=== PATIENT | female | born 1930 | race Caucasian/White ===

== ENCOUNTER 2018-10-12 09:20 | Emergency (ER) | payer MEDICARE, BC ==
[~2018-10-12] VITALS: Ht 167.6 cm; Wt 52.0 kg
[2018-10-12 10:59] VITALS: BP 98/52
== END 2018-10-12 12:30 | disposition home or self-care (01) ==
LOC: ED 10:18
DX: I95.9 Hypotension, unspecified (principal); I48.91 Unspecified atrial fibrillation; I10 Essential (primary) hypertension; Z79.899 Other long term (current) drug therapy
CPT/HCPCS: 36415; 71045; 80048; 82040; 84484; 85025; 93005; 99284

== ENCOUNTER 2019-04-05 08:18 | Outpatient (CLI) | payer MEDICARE, BC ==
[~2019-04-05 08:18] MED LIST: ACET-709 PEG; CEPH-368 PO; DABI75CA3 PO; DIGO125T81 PO; FURO20TA3 PO; LISI5TAB7 PO; METO50TA82 PO
== END 2019-04-05 23:59 | disposition home or self-care (01) ==
LOC: WOUND 08:18
PROVIDERS: ATTEND Family Medicine
DX: I70.245 Atherosclerosis of native arteries of left leg with ulceration of other part of foot (principal); L89.890 Pressure ulcer of other site, unstageable; L97.521 Non-pressure chronic ulcer of other part of left foot limited to breakdown of skin; L97.511 Non-pressure chronic ulcer of other part of right foot limited to breakdown of skin; E55.9 Vitamin D deficiency, unspecified; E78.5 Hyperlipidemia, unspecified; M06.9 Rheumatoid arthritis, unspecified; M81.0 Age-related osteoporosis without current pathological fracture; I11.9 Hypertensive heart disease without heart failure; I48.91 Unspecified atrial fibrillation; F32.9 Major depressive disorder, single episode, unspecified; F41.9 Anxiety disorder, unspecified; Z95.0 Presence of cardiac pacemaker; Z87.891 Personal history of nicotine dependence; Z85.3 Personal history of malignant neoplasm of breast
CPT/HCPCS: 73630; G0463

== ENCOUNTER 2019-04-05 09:54 | Outpatient (CLI) | payer MEDICARE, BC | END 2019-04-05 23:59 | disposition home or self-care (01) | LOC: CFH 09:54 | PROVIDERS: ATTEND Family Medicine | DX: S91.301D Unspecified open wound, right foot, subsequent encounter (principal); S91.302D Unspecified open wound, left foot, subsequent encounter; M19.072 Primary osteoarthritis, left ankle and foot; M10.072 Idiopathic gout, left ankle and foot; M81.0 Age-related osteoporosis without current pathological fracture; M86.8X7 Other osteomyelitis, ankle and foot; X58.XXXD Exposure to other specified factors, subsequent encounter ==

== ENCOUNTER → 2019-04-18 | Outpatient (CLI) | payer MEDICARE, BC | END | disposition home or self-care (01) | LOC: CVU 06:49 | PROVIDERS: ATTEND Family Medicine | DX: S91.301D Unspecified open wound, right foot, subsequent encounter (principal); S91.302D Unspecified open wound, left foot, subsequent encounter; I82.811 Embolism and thrombosis of superficial veins of right lower extremity; I70.293 Other atherosclerosis of native arteries of extremities, bilateral legs; X58.XXXA Exposure to other specified factors, initial encounter | CPT/HCPCS: 93922; 93925; 93970 ==

== ENCOUNTER 2019-04-19 08:01 | Outpatient (CLI) | payer MEDICARE, BC | END 2019-04-19 23:59 | disposition home or self-care (01) | LOC: WOUND 08:01 | PROVIDERS: ATTEND Family Medicine | DX: I70.245 Atherosclerosis of native arteries of left leg with ulceration of other part of foot (principal); L89.890 Pressure ulcer of other site, unstageable; L97.522 Non-pressure chronic ulcer of other part of left foot with fat layer exposed; I70.235 Atherosclerosis of native arteries of right leg with ulceration of other part of foot; L97.511 Non-pressure chronic ulcer of other part of right foot limited to breakdown of skin; I11.0 Hypertensive heart disease with heart failure; I50.9 Heart failure, unspecified; I48.91 Unspecified atrial fibrillation; E78.5 Hyperlipidemia, unspecified; M81.0 Age-related osteoporosis without current pathological fracture; M10.072 Idiopathic gout, left ankle and foot; M19.071 Primary osteoarthritis, right ankle and foot; M86.8X7 Other osteomyelitis, ankle and foot; F41.9 Anxiety disorder, unspecified; F32.9 Major depressive disorder, single episode, unspecified; Z85.3 Personal history of malignant neoplasm of breast; Z87.891 Personal history of nicotine dependence; Z95.0 Presence of cardiac pacemaker; Z88.0 Allergy status to penicillin | CPT/HCPCS: 36415; 85025; 85651; 86140; G0463 ==

== ENCOUNTER → 2019-04-19 | Outpatient (CLI) | payer MEDICARE, BC ==
[2019-04-19 14:07] LABS: BASOPHILS # (AUTO) 0.03 x10^3/uL (0-0.1); BASOPHILS % (AUTO) 0 % (0-1); EOSINOPHILS % (AUTO) 3 % (1-7); LYMPHOCYTES # (AUTO) 1.19 x10^3/uL (1-3.4); LYMPHOCYTES % (AUTO) 15 % (22-44); MD NO; MEAN CORPUSCULAR HGB CONC 32.6 g/dL (32.4-35.8); MEAN CORPUSCULAR VOLUME 88.8 fL (80-100); MEAN PLATELET VOLUME 9.5 fL (7.4-10.4); MONOCYTES # (AUTO) 0.65 x10^3/uL (0.2-0.8); MONOCYTES % (AUTO) 8 % (2-9); NEUTROPHILS # (AUTO) 6.15 x10^3/uL (1.8-6.8); NEUTROPHILS % (AUTO) 75 % (42-75); PLATELET COUNT 264 x10^3/uL (130-400); RED BLOOD COUNT 4.01 x10^6/uL (3.82-5.3); RED CELL DISTRIBUTION WIDTH 16.2 % (9.6-15.2)
== END | disposition home or self-care (01) ==
LOC: CFH 08:50
PROVIDERS: ATTEND Family Medicine
DX: I70.235 Atherosclerosis of native arteries of right leg with ulceration of other part of foot (principal); I70.245 Atherosclerosis of native arteries of left leg with ulceration of other part of foot
CPT/HCPCS: 36415; 85025; 85651; 86140

== ENCOUNTER 2019-05-06 10:24 | Outpatient (CLI) | payer MEDICARE, BC | END 2019-05-06 23:59 | disposition home or self-care (01) | LOC: WOUND 10:24 | PROVIDERS: ATTEND Internal Medicine | DX: I70.245 Atherosclerosis of native arteries of left leg with ulceration of other part of foot (principal); L89.890 Pressure ulcer of other site, unstageable; L97.522 Non-pressure chronic ulcer of other part of left foot with fat layer exposed; I70.235 Atherosclerosis of native arteries of right leg with ulceration of other part of foot; L97.511 Non-pressure chronic ulcer of other part of right foot limited to breakdown of skin; I11.0 Hypertensive heart disease with heart failure; I50.9 Heart failure, unspecified; I48.91 Unspecified atrial fibrillation; E78.5 Hyperlipidemia, unspecified; M81.0 Age-related osteoporosis without current pathological fracture; M10.072 Idiopathic gout, left ankle and foot; M19.071 Primary osteoarthritis, right ankle and foot; M86.8X7 Other osteomyelitis, ankle and foot; F41.9 Anxiety disorder, unspecified; F32.9 Major depressive disorder, single episode, unspecified; Z85.3 Personal history of malignant neoplasm of breast; Z87.891 Personal history of nicotine dependence; Z95.0 Presence of cardiac pacemaker; Z88.0 Allergy status to penicillin | CPT/HCPCS: 11042; 99215 ==

== ENCOUNTER 2019-05-06 11:42 | Inpatient (IN) | payer MEDICARE, BC ==
[~2019-05-06] VITALS: Ht 167.6 cm; Wt 61.3 kg
[2019-05-06 12:38] LABS: BASOPHILS # (AUTO) 0.03 x10^3/uL (0-0.1); BASOPHILS % (AUTO) 0 % (0-1); EOSINOPHILS # (AUTO) 0.19 x10^3/uL (0-0.4); EOSINOPHILS % (AUTO) 2 % (1-7); LYMPHOCYTES # (AUTO) 1.43 x10^3/uL (1-3.4); LYMPHOCYTES % (AUTO) 16 % (22-44); MD NO; MEAN CORPUSCULAR HEMOGLOBIN 29.1 pg (27.0-34.8); MEAN CORPUSCULAR HGB CONC 32.7 g/dL (32.4-35.8); MEAN PLATELET VOLUME 8.4 fL (7.4-10.4); MONOCYTES # (AUTO) 0.69 x10^3/uL (0.2-0.8); MONOCYTES % (AUTO) 8 % (2-9); NEUTROPHILS # (AUTO) 6.51 x10^3/uL (1.8-6.8); NEUTROPHILS % (AUTO) 74 % (42-75); PLATELET COUNT 285 x10^3/uL (130-400); RED BLOOD COUNT 4.14 x10^6/uL (3.82-5.3); RED CELL DISTRIBUTION WIDTH 15.9 % (9.6-15.2)
[2019-05-06 12:47] LABS: ALBUMIN 3.7 g/dL (3.4-5.0); ANION GAP 5 mmol/L (5-15); CALCIUM 9.6 mg/dL (8.5-10.1); CHLORIDE 108 mmol/L (98-107)
[2019-05-06 12:59] LABS: ALANINE AMINOTRANSFERASE 17 U/L (12-78); ALKALINE PHOSPHATASE 78 U/L (45-117); BILIRUBIN,TOTAL 0.5 mg/dL (0.2-1.0); CREATININE 1.41 mg/dL (0.55-1.02); TOTAL PROTEIN 7.6 g/dL (6.4-8.2)
[2019-05-06 13:24] LABS: HCT (SEDRATE) 36.8 % (34.6-47.8)
--- NOTE | 2019-05-06 18:00 | NUR ---
PT IN BED, FAMILY AT BEDSIDE, NO SIGNS OF DISTRESS.
[2019-05-06] MEDS ORDERED: CEFTRIAXONE PMX 1GM/50ML 50 ML IVPB ONE (19:00)
--- NOTE | 2019-05-06 19:00 | NUR ---
REPORT GIVEN TO BONNY MELO
--- NOTE | 2019-05-06 19:22 | NUR ---
Report received from BONNY Krishnan. This RN to assume care. [facility].
[2019-05-06] MEDS ORDERED: CEFTRIAXONE PMX 1GM/50ML 50 ML ONE (19:25)
[2019-05-06] MEDS ORDERED: SODIUM CHLORIDE FLUSH 10ML SYR IVF PRN (20:00)
[2019-05-06] MEDS: SODIUM CHLORIDE 0.9% 1,000 ML IV SCH (20:10)
[2019-05-06] MEDS ORDERED: ACETAMINOPHEN 325 MG TABLET PO PRN (20:30)
[2019-05-06] MEDS ORDERED: BISACODYL 10 MG SUPP PR PRN (20:30)
[2019-05-06] MEDS ORDERED: HEPARIN 5,000 UNITS/ML, 1ML ONE (20:38)
[2019-05-06] MEDS ORDERED: LISINOPRIL 5 MG TABLET ONE (20:38)
[2019-05-06] MEDS ORDERED: METOPROLOL TARTRATE 25 MG TAB ONE (20:38)
[2019-05-06] MEDS: METOPROLOL TARTRATE 50 MG TAB PO SCH (21:00)
[2019-05-06] MEDS ORDERED: APAP/CODEINE 300/30MG TABLET PEG SCH (21:00)
[2019-05-06] MEDS ORDERED: APAP/CODEINE 300/30MG TABLET ONE (21:04)
[2019-05-06] MEDS: HEPARIN 5,000 UNITS/ML, 1ML SQ SCH (21:26)
[2019-05-06] MEDS: LISINOPRIL 5 MG TABLET PO SCH (21:27)
[2019-05-06 22:56] VITALS: BP 145/77
[2019-05-07 02:10] VITALS: BP 132/75
[2019-05-07] MEDS: APAP/CODEINE 300/30MG TABLET PO SCH ×4 (03:33→23:04)
[2019-05-07 05:10] LABS: ANION GAP 6 mmol/L (5-15); CALCIUM 8.9 mg/dL (8.5-10.1); CHLORIDE 110 mmol/L (98-107); CREATININE 1.23 mg/dL (0.55-1.02)
[2019-05-07 05:18] LABS: BASOPHILS # (AUTO) 0.03 x10^3/uL (0-0.1); BASOPHILS % (AUTO) 0 % (0-1); EOSINOPHILS # (AUTO) 0.24 x10^3/uL (0-0.4); EOSINOPHILS % (AUTO) 3 % (1-7); LYMPHOCYTES # (AUTO) 1.79 x10^3/uL (1-3.4); LYMPHOCYTES % (AUTO) 25 % (22-44); MD NO; MEAN CORPUSCULAR HEMOGLOBIN 28.9 pg (27.0-34.8); MEAN CORPUSCULAR HGB CONC 32.5 g/dL (32.4-35.8); MEAN PLATELET VOLUME 8.8 fL (7.4-10.4); MONOCYTES # (AUTO) 0.59 x10^3/uL (0.2-0.8); MONOCYTES % (AUTO) 8 % (2-9); NEUTROPHILS # (AUTO) 4.51 x10^3/uL (1.8-6.8); NEUTROPHILS % (AUTO) 63 % (42-75); PLATELET COUNT 223 x10^3/uL (130-400); RED BLOOD COUNT 3.66 x10^6/uL (3.82-5.3); RED CELL DISTRIBUTION WIDTH 15.8 % (9.6-15.2)
[2019-05-07] MEDS: HEPARIN 5,000 UNITS/ML, 1ML SQ SCH ×3 (05:42→23:04)
[2019-05-07 07:41] VITALS: BP 129/65
[2019-05-07] MEDS: SODIUM CHLORIDE 0.9% 1,000 ML IV SCH (09:20)
[2019-05-07] MEDS: DIGOXIN 0.125 MG TABLET PO SCH (09:21)
[2019-05-07] MEDS: LISINOPRIL 5 MG TABLET PO SCH ×2 (09:23→23:04)
[2019-05-07] MEDS: SENNA/DOCUSATE TABLET PO SCH (09:23)
[2019-05-07] MEDS: METOPROLOL TARTRATE 50 MG TAB PO SCH ×2 (09:23→23:04)
[2019-05-07 12:35] VITALS: BP 132/71
[2019-05-07 19:05] VITALS: BP 133/88
[2019-05-08 02:57] VITALS: BP 163/79
[2019-05-08] MEDS: APAP/CODEINE 300/30MG TABLET PO SCH ×4 (05:48→23:04)
[2019-05-08] MEDS: HEPARIN 5,000 UNITS/ML, 1ML SQ SCH ×3 (06:37→22:00)
[2019-05-08] MEDS: DIGOXIN 0.125 MG TABLET PO SCH (08:42)
[2019-05-08] MEDS: LISINOPRIL 5 MG TABLET PO SCH ×2 (08:42→21:24)
[2019-05-08] MEDS: METOPROLOL TARTRATE 50 MG TAB PO SCH ×2 (08:42→21:23)
[2019-05-08] MEDS: SENNA/DOCUSATE TABLET PO SCH (08:42)
[2019-05-08 09:07] VITALS: BP 112/65
[2019-05-08 13:52] VITALS: BP 90/59
[2019-05-08 18:46] VITALS: BP 115/93
[2019-05-09 00:52] VITALS: BP 134/72
[2019-05-09] MEDS: APAP/CODEINE 300/30MG TABLET PO SCH ×4 (05:00→23:46)
[2019-05-09] MEDS: HEPARIN 5,000 UNITS/ML, 1ML SQ SCH ×3 (05:39→22:00)
[2019-05-09] MEDS ORDERED: FLUMAZENIL 0.1 MG/1 ML, 5ML ONE (07:11)
[2019-05-09] MEDS ORDERED: FENTANYL PF 100 MCG/2ML ONE (07:11)
[2019-05-09] MEDS ORDERED: MIDAZOLAM 1 MG/ML, 5ML ONE (07:11)
[2019-05-09] MEDS ORDERED: NALOXONE 1 MG/ML, 2ML ONE (07:11)
[2019-05-09] MEDS ORDERED: HEPARIN 1,000 UNITS/ML, 10ML ONE (07:11)
[2019-05-09] MEDS ORDERED: PROTAMINE SULFATE 10 MG/ML, 25ML ONE (07:11)
[2019-05-09] MEDS ORDERED: LIDOCAINE 2%, 20ML ONE (07:13)
[2019-05-09 07:55] VITALS: BP 124/69
[2019-05-09] MEDS ORDERED: hydrALAzine 20 MG/ML, 1ML ONE (08:45)
[2019-05-09] MEDS: LISINOPRIL 5 MG TABLET PO SCH ×2 (09:21→21:26)
[2019-05-09] MEDS: METOPROLOL TARTRATE 50 MG TAB PO SCH ×2 (09:21→23:50)
[2019-05-09] MEDS: SENNA/DOCUSATE TABLET PO SCH (09:21)
[2019-05-09] MEDS: DIGOXIN 0.125 MG TABLET PO SCH (09:21)
[2019-05-09 13:37] VITALS: BP 127/73
[2019-05-09 18:42] VITALS: BP 104/60
[2019-05-09 23:47] VITALS: BP 130/67
[2019-05-10 01:10] VITALS: BP 136/71
[2019-05-10 04:21] LABS: BASOPHILS # (AUTO) 0.02 x10^3/uL (0-0.1); BASOPHILS % (AUTO) 0 % (0-1); EOSINOPHILS # (AUTO) 0.24 x10^3/uL (0-0.4); EOSINOPHILS % (AUTO) 4 % (1-7); LYMPHOCYTES # (AUTO) 1.22 x10^3/uL (1-3.4); LYMPHOCYTES % (AUTO) 19 % (22-44); MD NO; MEAN CORPUSCULAR HEMOGLOBIN 28.9 pg (27.0-34.8); MEAN CORPUSCULAR HGB CONC 32.6 g/dL (32.4-35.8); MEAN CORPUSCULAR VOLUME 88.5 fL (80-100); MEAN PLATELET VOLUME 8.2 fL (7.4-10.4); MONOCYTES # (AUTO) 0.61 x10^3/uL (0.2-0.8); MONOCYTES % (AUTO) 10 % (2-9); NEUTROPHILS # (AUTO) 4.33 x10^3/uL (1.8-6.8); NEUTROPHILS % (AUTO) 67 % (42-75); PLATELET COUNT 206 x10^3/uL (130-400); RED BLOOD COUNT 3.52 x10^6/uL (3.82-5.3); RED CELL DISTRIBUTION WIDTH 15.6 % (9.6-15.2)
[2019-05-10 04:33] LABS: ANION GAP 5 mmol/L (5-15); CALCIUM 8.9 mg/dL (8.5-10.1); CHLORIDE 110 mmol/L (98-107); CREATININE 1.13 mg/dL (0.55-1.02)
[2019-05-10] MEDS: APAP/CODEINE 300/30MG TABLET PO SCH ×3 (05:00→22:02)
[2019-05-10] MEDS: HEPARIN 5,000 UNITS/ML, 1ML SQ SCH (05:16)
[2019-05-10] MEDS ORDERED: PHENYLEPHRINE 10 MG/ML ONE (06:48)
[2019-05-10] MEDS ORDERED: FENTANYL PF 250 MCG/5ML ONE (06:50)
[2019-05-10] MEDS ORDERED: GABAPENTIN 300 MG CAPSULE PO ONE (07:00)
[2019-05-10] MEDS ORDERED: ACETAMINOPHEN 500 MG TABLET PO ONE (07:00)
[2019-05-10] MEDS ORDERED: HEPARIN 1,000 UNITS/ML, 10ML ONE (07:02)
[2019-05-10] MEDS ORDERED: BUPIVACAINE/PF-EPI 0.5% 1:200K ONE (07:02)
[2019-05-10] MEDS ORDERED: PROTAMINE SULFATE 10 MG/ML, 5ML ONE (07:03)
[2019-05-10] MEDS ORDERED: BACITRACIN 50,000 UNIT ONE (07:03)
[2019-05-10] MEDS ORDERED: THROMBIN 20,000 UNIT VIAL TP ONE (07:03)
[2019-05-10] MEDS ORDERED: OXYcodone 5 MG/5 ML ORAL.SOL UDC PO PRN (07:30)
[2019-05-10] MEDS ORDERED: MEPERIDINE/PF 25MG/ML,1ML IVPush PRN (07:30)
[2019-05-10] MEDS ORDERED: PROMETHAZINE 25 MG/ML, 1ML IV PRN (07:30)
[2019-05-10] MEDS ORDERED: LABETALOL 5MG/ML, 20ML IV PRN (07:30)
[2019-05-10] MEDS ORDERED: HYDROmorphone 2 MG/ML, 1ML IVPush PRN (07:30)
[2019-05-10] MEDS ORDERED: HALOPERIDOL 5 MG/ML IV PRN (07:30)
[2019-05-10] MEDS ORDERED: MORPHINE SULFATE 4 MG/ML, 1ML IVPush PRN (07:30)
[2019-05-10] MEDS ORDERED: FENTANYL PF 100 MCG/2ML IV PRN (07:30)
[2019-05-10] MEDS ORDERED: hydrALAzine 20 MG/ML, 1ML IV PRN (07:30)
[2019-05-10] MEDS ORDERED: ROCURONIUM 10MG/ML,5ML ONE (08:30)
[2019-05-10] MEDS ORDERED: GLYCOPYRROLATE 0.2MG/1ML, 5ML ONE (08:30)
[2019-05-10] MEDS ORDERED: ONDANSETRON 2MG/ML, 2ML ONE (08:30)
[2019-05-10] MEDS ORDERED: PROPOFOL 10 MG/ML, 20ML ONE (08:30)
[2019-05-10] MEDS ORDERED: DEXAMETHASONE 4 MG/ML, 1ML ONE (08:30)
[2019-05-10] MEDS ORDERED: CEFAZOLIN 1,000 MG ONE (08:30)
[2019-05-10] MEDS ORDERED: NEOSTIGMINE 1 MG/ML, 10ML ONE (08:30)
[2019-05-10] MEDS: DIGOXIN 0.125 MG TABLET PO SCH (09:00)
[2019-05-10] MEDS: METOPROLOL TARTRATE 50 MG TAB PO SCH ×2 (09:00→22:02)
[2019-05-10] MEDS: LISINOPRIL 5 MG TABLET PO SCH ×2 (09:00→22:02)
[2019-05-10] MEDS: SENNA/DOCUSATE TABLET PO SCH (09:00)
[2019-05-10] MEDS ORDERED: SUGAMMADEX 200 MG/2 ML IVPush ONE (09:18)
[2019-05-10] MEDS ORDERED: HEPARIN 25,000 UNITS/250ML PMX 250 ML IV PRN (10:00)
[2019-05-10] MEDS ORDERED: HEPARIN 5,000 UNITS/ML, 1ML IV PRN (10:00)
[2019-05-10] MEDS ORDERED: HEPARIN 5,000 UNITS/ML, 1ML IV ONE (10:00)
[2019-05-10] MEDS ORDERED: PROTAMINE SULFATE 10 MG/ML, 5ML IVPush ONE (12:00)
[2019-05-10 14:07] VITALS: BP 125/72
[2019-05-10] MEDS: ONDANSETRON ODT 4 MG PO PRN (18:39)
[2019-05-10 19:15] VITALS: BP 102/56
[2019-05-10] MEDS ORDERED: APIX2.5T PO (19:55)
[2019-05-10] MEDS ORDERED: morphine SULFATE 10 MG/ML, 1ML IV PRN (21:00)
[2019-05-10] MEDS: POTASSIUM CHLORIDE 20 MEQ in D5%-0.45% NACL 1,000 ML IV SCH (21:00)
[2019-05-10] MEDS: SULFAMETH./TRIMETHOPRIM DS 800MG/160MG TABLET PO SCH (22:02)
[2019-05-10] MEDS: CEFAZOLIN PMX 1GM/50ML 50 ML IVPB SCH (22:02)
[2019-05-11 01:02] VITALS: BP 120/62
[2019-05-11] MEDS: APAP/CODEINE 300/30MG TABLET PO SCH ×4 (04:00→21:35)
[2019-05-11 05:26] LABS: CHLORIDE 107 mmol/L (98-107)
[2019-05-11 05:30] LABS: CALCIUM 8.8 mg/dL (8.5-10.1); CREATININE 1.35 mg/dL (0.55-1.02)
[2019-05-11 05:36] LABS: BASOPHILS # (AUTO) 0.01 x10^3/uL (0-0.1); BASOPHILS % (AUTO) 0 % (0-1); EOSINOPHILS % (AUTO) 0 % (1-7); LYMPHOCYTES # (AUTO) 0.94 x10^3/uL (1-3.4); LYMPHOCYTES % (AUTO) 10 % (22-44); MD NO; MEAN CORPUSCULAR HEMOGLOBIN 29.2 pg (27.0-34.8); MEAN CORPUSCULAR HGB CONC 32.9 g/dL (32.4-35.8); MEAN CORPUSCULAR VOLUME 88.7 fL (80-100); MEAN PLATELET VOLUME 8.9 fL (7.4-10.4); MONOCYTES # (AUTO) 0.71 x10^3/uL (0.2-0.8); MONOCYTES % (AUTO) 8 % (2-9); NEUTROPHILS # (AUTO) 7.32 x10^3/uL (1.8-6.8); NEUTROPHILS % (AUTO) 82 % (42-75); PLATELET COUNT 201 x10^3/uL (130-400); RED BLOOD COUNT 3.15 x10^6/uL (3.82-5.3); RED CELL DISTRIBUTION WIDTH 15.7 % (9.6-15.2)
[2019-05-11 06:11] LABS: ANION GAP 7 mmol/L (5-15)
[2019-05-11] MEDS: CEFAZOLIN PMX 1GM/50ML 50 ML IVPB SCH (06:32)
[2019-05-11 07:59] VITALS: BP 124/65
[2019-05-11] MEDS: LISINOPRIL 5 MG TABLET PO SCH ×2 (08:54→21:35)
[2019-05-11] MEDS: DIGOXIN 0.125 MG TABLET PO SCH (08:54)
[2019-05-11] MEDS: SENNA/DOCUSATE TABLET PO SCH (08:54)
[2019-05-11] MEDS: SULFAMETH./TRIMETHOPRIM DS 800MG/160MG TABLET PO SCH ×2 (08:55→21:34)
[2019-05-11] MEDS: METOPROLOL TARTRATE 50 MG TAB PO SCH ×2 (08:55→21:34)
[2019-05-11 14:24] VITALS: BP_SYST 96; BP_DIAS 57; BP_DIAS 63
[2019-05-11] MEDS: POTASSIUM CHLORIDE 20 MEQ in D5%-0.45% NACL 1,000 ML IV SCH (14:55)
[2019-05-11] MEDS: HYDROcodone/APAP 5/325 TABLET PO PRN (15:22)
[2019-05-11 19:38] VITALS: BP 92/58
[2019-05-12 01:00] VITALS: BP 124/63
[2019-05-12] MEDS: POTASSIUM CHLORIDE 20 MEQ in D5%-0.45% NACL 1,000 ML IV SCH (03:58)
[2019-05-12] MEDS: APAP/CODEINE 300/30MG TABLET PO SCH ×4 (03:58→22:17)
[2019-05-12 05:23] LABS: BASOPHILS # (AUTO) 0.03 x10^3/uL (0-0.1); BASOPHILS % (AUTO) 1 % (0-1); EOSINOPHILS # (AUTO) 0.23 x10^3/uL (0-0.4); EOSINOPHILS % (AUTO) 4 % (1-7); LYMPHOCYTES # (AUTO) 1.06 x10^3/uL (1-3.4); LYMPHOCYTES % (AUTO) 16 % (22-44); MD NO; MEAN CORPUSCULAR HEMOGLOBIN 29.5 pg (27.0-34.8); MEAN CORPUSCULAR HGB CONC 32.8 g/dL (32.4-35.8); MEAN CORPUSCULAR VOLUME 89.9 fL (80-100); MEAN PLATELET VOLUME 8.8 fL (7.4-10.4); MONOCYTES # (AUTO) 0.48 x10^3/uL (0.2-0.8); MONOCYTES % (AUTO) 7 % (2-9); NEUTROPHILS # (AUTO) 4.95 x10^3/uL (1.8-6.8); NEUTROPHILS % (AUTO) 73 % (42-75); PLATELET COUNT 197 x10^3/uL (130-400); RED BLOOD COUNT 2.98 x10^6/uL (3.82-5.3); RED CELL DISTRIBUTION WIDTH 16.3 % (9.6-15.2)
[2019-05-12 05:24] LABS: ANION GAP 7 mmol/L (5-15); CALCIUM 8.5 mg/dL (8.5-10.1); CHLORIDE 105 mmol/L (98-107)
[2019-05-12 05:26] LABS: CREATININE 1.54 mg/dL (0.55-1.02)
[2019-05-12 07:58] VITALS: BP 109/61
[2019-05-12] MEDS: METOPROLOL TARTRATE 50 MG TAB PO SCH ×2 (09:08→22:15)
[2019-05-12] MEDS: SULFAMETH./TRIMETHOPRIM DS 800MG/160MG TABLET PO SCH ×2 (09:08→19:53)
[2019-05-12] MEDS: LISINOPRIL 5 MG TABLET PO SCH ×2 (09:08→19:51)
[2019-05-12] MEDS: DIGOXIN 0.125 MG TABLET PO SCH (09:08)
[2019-05-12] MEDS: SENNA/DOCUSATE TABLET PO SCH (09:09)
[2019-05-12] MEDS: ONDANSETRON ODT 4 MG PO PRN (12:41)
[2019-05-12 13:08] VITALS: BP 95/59
--- NOTE | 2019-05-12 14:40 | NUR ---
REC: return to previous living situation; do not suspect need for [employer] intervention at time of discharge. REC: regular/thin liquid diet. Addendum: 05/12/19 at 1441 by Kate MCDONALD Amended: Links added.
[2019-05-12 19:01] VITALS: BP 99/51
[2019-05-12 22:04] VITALS: BP 114/58
[2019-05-13 00:55] VITALS: BP 116/47
[2019-05-13] MEDS: APAP/CODEINE 300/30MG TABLET PO SCH ×3 (03:37→21:40)
[2019-05-13 05:18] LABS: BASOPHILS # (AUTO) 0.03 x10^3/uL (0-0.1); BASOPHILS % (AUTO) 0 % (0-1); EOSINOPHILS # (AUTO) 0.26 x10^3/uL (0-0.4); EOSINOPHILS % (AUTO) 4 % (1-7); LYMPHOCYTES # (AUTO) 1.21 x10^3/uL (1-3.4); LYMPHOCYTES % (AUTO) 18 % (22-44); MD NO; MEAN CORPUSCULAR HEMOGLOBIN 29.1 pg (27.0-34.8); MEAN CORPUSCULAR HGB CONC 32.4 g/dL (32.4-35.8); MEAN CORPUSCULAR VOLUME 89.9 fL (80-100); MEAN PLATELET VOLUME 9.1 fL (7.4-10.4); MONOCYTES # (AUTO) 0.62 x10^3/uL (0.2-0.8); MONOCYTES % (AUTO) 9 % (2-9); NEUTROPHILS # (AUTO) 4.68 x10^3/uL (1.8-6.8); NEUTROPHILS % (AUTO) 69 % (42-75); PLATELET COUNT 184 x10^3/uL (130-400); RED BLOOD COUNT 2.99 x10^6/uL (3.82-5.3); RED CELL DISTRIBUTION WIDTH 16.3 % (9.6-15.2)
[2019-05-13 05:28] LABS: ANION GAP 7 mmol/L (5-15); CALCIUM 8.7 mg/dL (8.5-10.1); CHLORIDE 109 mmol/L (98-107); CREATININE 1.59 mg/dL (0.55-1.02)
[2019-05-13 07:59] VITALS: BP 125/77
[2019-05-13] MEDS: DIGOXIN 0.125 MG TABLET PO SCH (13:49)
[2019-05-13] MEDS: SENNA/DOCUSATE TABLET PO SCH (13:49)
[2019-05-13] MEDS: METOPROLOL TARTRATE 50 MG TAB PO SCH ×2 (13:49→21:00)
[2019-05-13 14:36] VITALS: BP 121/72
[2019-05-13 19:12] VITALS: BP 103/59
[2019-05-13 21:37] VITALS: BP 100/61
[2019-05-14 00:58] VITALS: BP 105/65
[2019-05-14] MEDS: APAP/CODEINE 300/30MG TABLET PO SCH ×3 (03:23→18:35)
[2019-05-14 06:13] LABS: ANION GAP 7 mmol/L (5-15); CHLORIDE 108 mmol/L (98-107)
[2019-05-14 06:15] LABS: CREATININE 1.59 mg/dL (0.55-1.02)
[2019-05-14 06:16] LABS: BASOPHILS # (AUTO) 0.03 x10^3/uL (0-0.1); BASOPHILS % (AUTO) 0 % (0-1); EOSINOPHILS # (AUTO) 0.31 x10^3/uL (0-0.4); EOSINOPHILS % (AUTO) 5 % (1-7); LYMPHOCYTES # (AUTO) 0.89 x10^3/uL (1-3.4); LYMPHOCYTES % (AUTO) 13 % (22-44); MD NO; MEAN CORPUSCULAR HEMOGLOBIN 29.2 pg (27.0-34.8); MEAN CORPUSCULAR HGB CONC 32.6 g/dL (32.4-35.8); MEAN CORPUSCULAR VOLUME 89.6 fL (80-100); MONOCYTES # (AUTO) 0.62 x10^3/uL (0.2-0.8); MONOCYTES % (AUTO) 9 % (2-9); NEUTROPHILS # (AUTO) 4.96 x10^3/uL (1.8-6.8); NEUTROPHILS % (AUTO) 73 % (42-75); PLATELET COUNT 211 x10^3/uL (130-400); RED BLOOD COUNT 3.18 x10^6/uL (3.82-5.3); RED CELL DISTRIBUTION WIDTH 15.9 % (9.6-15.2)
[2019-05-14 07:48] VITALS: BP 108/62
[2019-05-14] MEDS: SENNA/DOCUSATE TABLET PO SCH (11:41)
[2019-05-14] MEDS: DIGOXIN 0.125 MG TABLET PO SCH (11:42)
[2019-05-14] MEDS: POLYETHYLENE GLYCOL 17 GM PACKET PO PRN (11:43)
[2019-05-14] MEDS: METOPROLOL TARTRATE 50 MG TAB PO SCH ×2 (11:43→21:29)
[2019-05-14 12:35] VITALS: BP 92/58
[2019-05-14] MEDS: SODIUM CHLORIDE 0.9% 1,000 ML IV SCH (18:28)
[2019-05-14 19:14] VITALS: BP 109/61
[2019-05-14] MEDS: HYDROcodone/APAP 5/325 TABLET PO PRN (21:29)
[2019-05-15 00:51] VITALS: BP 134/77
[2019-05-15 05:01] LABS: ANION GAP 3 mmol/L (5-15); CALCIUM 8.6 mg/dL (8.5-10.1); CHLORIDE 110 mmol/L (98-107)
[2019-05-15 05:04] LABS: CREATININE 1.31 mg/dL (0.55-1.02)
[2019-05-15] MEDS: APAP/CODEINE 300/30MG TABLET PO SCH ×5 (06:22→23:52)
[2019-05-15] MEDS: SODIUM CHLORIDE 0.9% 1,000 ML IV SCH ×2 (06:24→19:49)
[2019-05-15 07:58] VITALS: BP 137/69
[2019-05-15] MEDS ORDERED: SULFAMETH./TRIMETHOPRIM DS 800MG/160MG TABLET PO SCH (09:00)
[2019-05-15] MEDS: DIGOXIN 0.125 MG TABLET PO SCH (09:42)
[2019-05-15] MEDS: METOPROLOL TARTRATE 50 MG TAB PO SCH ×2 (09:42→20:25)
[2019-05-15] MEDS: SENNA/DOCUSATE TABLET PO SCH (09:42)
[2019-05-15 13:17] VITALS: BP 110/61
[2019-05-15] MEDS ORDERED: SODIUM POLYSTYRENE SULFONATE ORAL SUSP PO ONE (14:00)
[2019-05-15 19:01] VITALS: BP 144/64
[2019-05-15] MEDS: POLYETHYLENE GLYCOL 17 GM PACKET PO PRN (20:22)
[2019-05-15] MEDS: HYDROcodone/APAP 5/325 TABLET PO PRN (20:24)
[2019-05-15] MEDS: DOXYCYCLINE 100MG TABLET PO SCH (20:24)
[2019-05-16 00:25] VITALS: BP 133/88
[2019-05-16 04:15] LABS: ANION GAP 6 mmol/L (5-15); CALCIUM 8.6 mg/dL (8.5-10.1); CHLORIDE 113 mmol/L (98-107); CREATININE 1.02 mg/dL (0.55-1.02)
[2019-05-16] MEDS: APAP/CODEINE 300/30MG TABLET PO SCH ×2 (06:40→12:00)
[2019-05-16 07:55] VITALS: BP 130/72
[2019-05-16] MEDS: SENNA/DOCUSATE TABLET PO SCH (09:41)
[2019-05-16] MEDS: DOXYCYCLINE 100MG TABLET PO SCH (09:41)
[2019-05-16] MEDS: METOPROLOL TARTRATE 50 MG TAB PO SCH (09:42)
[2019-05-16] MEDS: DIGOXIN 0.125 MG TABLET PO SCH (09:43)
[2019-05-16] MEDS ORDERED: ONDANSETRON 2MG/ML, 2ML IVPush ONE (10:00)
[2019-05-16] MEDS ORDERED: DOXY100T PO (11:11)
[2019-05-16 14:04] VITALS: BP 128/75
== END 2019-05-16 14:58 | DRG 253 ==
LOC: ED 22:27 → EDIP 22:47 → 4NW 22:52
PROVIDERS: ADMIT Hospitalist; ATTEND Internal Medicine
PROC: 047N3ZZ Dilation of Left Popliteal Artery, Percutaneous Approach (ICD-10-PCS; principal; 2019-05-09)
PROC: B41D1ZZ Fluoroscopy of Aorta and Bilateral Lower Extremity Arteries using Low Osmolar Contrast (ICD-10-PCS; 2019-05-09)
PROC: 041L0JM Bypass Left Femoral Artery to Peroneal Artery with Synthetic Substitute, Open Approach (ICD-10-PCS; 2019-05-10)
DX: T82.858A Stenosis of other vascular prosthetic devices, implants and grafts, initial encounter (principal); D68.59 Other primary thrombophilia; I82.592 Chronic embolism and thrombosis of other specified deep vein of left lower extremity; I13.0 Hypertensive heart and chronic kidney disease with heart failure and stage 1 through stage 4 chronic kidney disease, or unspecified chronic kidney disease; M86.9 Osteomyelitis, unspecified; I70.248 Atherosclerosis of native arteries of left leg with ulceration of other part of lower leg; L97.521 Non-pressure chronic ulcer of other part of left foot limited to breakdown of skin; I99.8 Other disorder of circulatory system; C50.912 Malignant neoplasm of unspecified site of left female breast; E87.5 Hyperkalemia; I25.10 Atherosclerotic heart disease of native coronary artery without angina pectoris; I48.91 Unspecified atrial fibrillation; I50.9 Heart failure, unspecified; I71.4 Abdominal aortic aneurysm, without rupture; I72.3 Aneurysm of iliac artery; K21.9 Gastro-esophageal reflux disease without esophagitis; N18.3 Chronic kidney disease, stage 3 (moderate); M19.90 Unspecified osteoarthritis, unspecified site; T46.4X5A Adverse effect of angiotensin-converting-enzyme inhibitors, initial encounter; T36.8X5A Adverse effect of other systemic antibiotics, initial encounter; Y83.8 Other surgical procedures as the cause of abnormal reaction of the patient, or of later complication, without mention of misadventure at the time of the procedure; K22.8 Other specified diseases of esophagus; L03.031 Cellulitis of right toe; L97.519 Non-pressure chronic ulcer of other part of right foot with unspecified severity; Z66 Do not resuscitate; Z85.3 Personal history of malignant neoplasm of breast; Z90.49 Acquired absence of other specified parts of digestive tract; Z90.89 Acquired absence of other organs; Z95.810 Presence of automatic (implantable) cardiac defibrillator; Z87.891 Personal history of nicotine dependence; Z88.0 Allergy status to penicillin; Y92.098 Other place in other non-institutional residence as the place of occurrence of the external cause
CPT/HCPCS: 11042; 36415; 74240; 75630; 78315; 80048; 80053; 80162; 85014; 85018; 85025; 85520; 85651; 86140; 87040; 93306; 93922; 93925; 93970; 96365; 99215; 99285; C1725; G0378; J0690; J0696; J1100; J1644; J2250; J2405; J2704; J2710; J2720; J3010; J3480; Q0162; A9503; C1751; C1768; C1769; C1894; J0360; J2310; J2370; J7030